=== PATIENT | male | born 1980 | race Caucasian/White ===

== ENCOUNTER 2019-07-01 11:38 | Emergency (ER) | payer BC ==
[2019-07-01 12:11] VITALS: BP 139/86
--- NOTE | 2019-07-01 12:15 | UC ---
Throat Pain/Nasal Dontae HPI - HPI Summary HPI Summary: sore throat body aches for 3 days--unsure about illness exposures - History of Current Complaint Chief Complaint: UCGeneralIllness Stated Complaint: SORE THROAT, AND FEVER Time Seen by Provider: 07/01/19 12:13 Hx Obtained From: Patient Onset/Duration: Sudden Onset, Lasting Days - 3, Still Present Pain Intensity: 7 Pain Scale Used: 0-10 Numeric Cough: None Associated Signs & Symptoms: Positive: Fever - Allergies/Home Medications Allergies/Adverse Reactions: Allergies Allergy/AdvReac Type Severity Reaction Status Date / Time No Known Allergies Allergy Unverified 07/01/19 12:05 Home Medications: Home Medications Levothyroxine TAB* [Synthroid 137 MCG TAB*] 137 mcg PO DAILY 07/01/19 [History Confirmed 07/01/19] PMH/Surg Hx/FS Hx/Imm Hx Previously Healthy: No - Graves Disease - Surgical History Surgical History: Yes Surgery Procedure, Year, and Place: L ankle 1997. [place] 2014 - Family History Known Family History: Positive: None - Social History Occupation: Employed Full-time Lives: Alone Alcohol Use: None Substance Use Type: None Smoking Status (MU): Never Smoked Tobacco Review of Systems All Other Systems Reviewed And Are Negative: Yes Constitutional: Positive: Fever, Chills Skin: Positive: Negative Eyes: Positive: Negative ENT: Positive: Sore Throat Respiratory: Positive: Negative Cardiovascular: Positive: Negative Gastrointestinal: Positive: Negative Genitourinary: Positive: Negative Motor: Positive: Negative Neurovascular: Positive: Negative Musculoskeletal: Positive: Myalgia Neurological: Positive: Negative Psychological: Positive: Negative Is Patient Immunocompromised?: No Physical Exam Triage Information Reviewed: Yes Appearance: Well-Nourished, Ill-Appearing - mild, Pain Distress - mild Vital Signs: Initial Vital Signs Temp 99.5 F 07/01/19 12:06 Pulse 91 07/01/19 12:06 Resp 16 07/01/19 12:06 BP 139/86 07/01/19 12:06 Pulse Ox 100 07/01/19 12:06 Vital Signs Reviewed: Yes Eye Exam: Normal Eyes: Positive: Conjunctiva Clear ENT Exam: Normal ENT: Positive: Normal ENT inspection, Hearing grossly normal, Pharyngeal erythema, TMs normal, Tonsillar swelling, Uvula midline. Negative: Nasal congestion, Tonsillar exudate, Trismus, Muffled voice, Hoarse voice, Dental tenderness, Sinus tenderness Dental Exam: Normal Neck exam: Other Neck: Positive: Supple, Nontender, Enlarged Nodes @ Respiratory Exam: Normal Respiratory: Positive: Chest non-tender, Lungs clear, Normal breath sounds, No respiratory distress, No accessory muscle use Cardiovascular Exam: Normal Cardiovascular: Positive: RRR, No Murmur, Pulses Normal, Brisk Capillary Refill Musculoskeletal Exam: Normal Musculoskeletal: Positive: Strength Intact, ROM Intact, No Edema Neurological Exam: Normal Neurological: Positive: Alert, Muscle Tone Normal Psychological Exam: Normal Skin Exam: Normal Diagnostics - Laboratory Lab Results: strep and influenza are negative Throat Pain/Nasal Course/Dx - Course Course Of Treatment: patient educated to option regarding this being potential strep b or c patient meets 3/4 of centon criteria --increase fluids tylenol ibuprofen increase fluids follow with pcp prn - Differential Dx/Diagnosis Provider Diagnosis: Pharyngitis Discharge ED - Sign-Out/Discharge Documenting (check all that apply): Patient Departure All imaging exams completed and their final reports reviewed: No Studies - Discharge Plan Condition: Stable Disposition: HOME Prescriptions: Amoxicillin PO (*) [Amoxicillin 500 MG CAP*] 500 mg PO Q12H #20 cap Patient Education Materials: Pharyngitis (ED) Referrals: No Primary Care Phys,NOPCP [Primary Care Provider] - Additional Instructions: follow with primary care doctor at [facility] or return to urgent care if needed- - Billing Disposition and Condition Condition: STABLE Disposition: Home
[2019-07-01 13:05] LABS: Influenza A Molecular NEGATIVE (Negative); Influenza B Molecular NEGATIVE (Negative)
== END 2019-07-01 13:31 | disposition home or self-care (01) ==
LOC: UCEAST 11:38
DX: J02.9 Acute pharyngitis, unspecified (principal); E05.00 Thyrotoxicosis with diffuse goiter without thyrotoxic crisis or storm; Z79.890 Hormone replacement therapy
CPT/HCPCS: 87651; 99212; G0463